=== PATIENT | female | born 1940 | race African-American/Black ===

== ENCOUNTER 2016-11-20 17:18 | Emergency (ER) | payer OTHER, BC ==
[~2016-11-20] VITALS: Ht 177.8 cm; Wt 87.5 kg
[~2016-11-20 17:18] MED LIST: ACTOS 30 MG TAB30 M1 PO; AMARYL2 MG PO; AMARYL4 MG PO; AMLODIPINE-BEN1 EAC4 PO; ASPIRIN EC81 M1 PO; CLEOCIN HCL300 MG PO; FUROSEMIDE 40 M40 MG PO; JANUVIA100 MG PO; KLOR-CON 1010 MEQ PO; LANTUSSOLASTAR SUBQ; LEVOTHYROXIN0.125 M1 PO; MEDROL DOSPAK21 TAB PO; NAPROSYN250 MG PO; NORCO 5-325 TA1 EACH PO; SIMVASTATIN20 MG PO; SYSTANE 0.3-0.1 EACH OP; TIMOLOL GL0.5 %/5 M1 OP
[2016-11-20] MEDS ORDERED: COSOPT OCUMETER10 M1 OP (17:50)
== END 2016-11-20 18:50 | disposition home or self-care (01) ==
LOC: ER 17:18
DX: S09.90XA Unspecified injury of head, initial encounter (principal); E11.9 Type 2 diabetes mellitus without complications; I10 Essential (primary) hypertension; E78.00 Pure hypercholesterolemia, unspecified; Z90.89 Acquired absence of other organs; Z95.1 Presence of aortocoronary bypass graft; W18.30XA Fall on same level, unspecified, initial encounter; Y93.89 Activity, other specified; Y92.040 Kitchen in boarding-house as the place of occurrence of the external cause; Y99.9 Unspecified external cause status